=== PATIENT | female | born 1960 | race Caucasian/White ===

== ENCOUNTER 2019-09-23 08:18 | Emergency (ER) | payer OTHER, SELFPAY ==
--- NOTE | ~2019-09-23 | XR_ITS ---
EXAMINATION: XR chest 2V DATE: 09/23/2019 09:57 INDICATION: Cough and fever. TECHNIQUE: Frontal and lateral views of the chest were obtained. COMPARISON: None. FINDINGS: The chest demonstrates clear lungs without pneumonia, pleural effusion, or pneumothorax. Th e heart size is normal. IMPRESSION: 1. No acute cardiopulmonary disease. Reviewed, dictated and finalized at location A. [employer] FINANCE MANAGER
--- NOTE | 2019-09-23 09:01 | ED.URI ---
HPI - URI/Sore Throat General Chief Complaint: Upper Respiratory Infection Stated Complaint: Ear pain/Sinus/Runny nose Time Seen by Provider: 09/23/19 09:36 Source: patient and RN notes reviewed Mode of arrival: ambulatory Limitations: no limitations History of Present Illness HPI Narrative: 59-year-old female presents with concern for left earache, rhinorrhea, sinus congestion, cough, fever that started Monday. She reports one episode of diarrhea. Reports taking DayQuil and NyQuil with no relief. MD elicited complaint: cough Related Data Home Medications Medication Instructions Recorded Confirmed hydrochlorothiazide 12.5 mg DAILY 09/23/19 09/23/19 lansoprazole [Prevacid] 15 mg PO DAILY 09/23/19 09/23/19 lisinopril 40 mg DAILY 09/23/19 09/23/19 simvastatin 20 mg DAILY 09/23/19 09/23/19 Allergies Allergy/AdvReac Type Severity Reaction Status Date / Time amoxicillin Allergy Unknown Rash Verified 09/23/19 09:36 Review of Systems Review of Systems: Narrative: CONSTITUTIONAL: Reports malaise, chills, sweats, fever. EYES: Denies visual changes, redness, or discharge. ENT: Reports rhinorrhea, congestion, otalgia. Denies sinus pain, otalgia. CARDIOVASCULAR: Denies chest pain, palpitations, or edema. RESPIRATORY: Reports cough, chest congestion. Denies dyspnea. GASTROINTESTINAL: Denies abdominal pain, nausea, vomiting reports one episode of diarrhea SKIN: Denies rash or itching. MUSCULOSKELETAL: Reports myalgia. NEUROLOGIC: Reports headache. All systems reviewed & are unremarkable except as noted in HPI and below PMFSH Family History Family History (Updated 11/27/14 @ 10:51 by DOCTOR UNKNOWN) Other Diabetes mellitus Malignant neoplasm of prostate Social History Social History Smoking status: Never smoker Second hand tobacco smoke exposure: No Alcohol intake: current Gender identity (if verbalized by the patient): Female Comments At time of signature, agree with nursing past medical, surgical, social and family history. There is no relevant family history pertinent to the presenting complaint Exam Narrative: Exam Narrative: GENERAL: Well-appearing, well-nourished, and in no acute distress. HEAD: Normocephalic EYES: PERRLA, conjunctivae clear ENT: Nares clear, turbinates erythematous, clear discharge. Mucous membranes moist. TM pearly alfredo with dull light reflex bilaterally; no tragal tenderness. Oropharynx not erythematous without lesions. Tonsils not enlarged and without exudate, no drooling, no hoarseness, no trismus. NECK: Supple. No lymphadenopathy CHEST: Scant scattered rhonchi, otherwise clear to auscultation, breath sounds right lower lobe diminished. No wheezing, rales, or stridor. No respiratory distress, speaks in full sentences. HEART: Regular rate and rhythm. No murmur heard. Normal peripheral pulses. SKIN: Warm, dry, no rash. NEURO: Alert and oriented x3. PSYCH: Normal mood and affect Course Course Emergency Course: Patient is aware of diagnosis, understands and agrees to treatment plan. Anticipatory guidance given. Patient agrees to follow-up as directed and is aware of reasons to seek care at the emergency department. Portions of this record may have been created with voice recognition software Vital Signs Vital signs: Vital Signs Temperature 102.6 F H 09/23/19 09:24 Pulse Rate 112 H 09/23/19 09:24 Respiratory Rate 16 09/23/19 09:24 Blood Pressure 132/77 09/23/19 09:24 Pulse Oximetry 96 09/23/19 09:24 Temperature 102.6 F H 09/23/19 09:24 Pulse Rate 112 H 09/23/19 09:24 Respiratory Rate 16 09/23/19 09:24 Blood Pressure 132/77 09/23/19 09:24 Pulse Oximetry 96 09/23/19 09:24 Reviewed. MDM - URI/Sore Throat MDM Narrative Medical decision making narrative: Differential diagnosis considered: Strep pharyngitis, allergic rhinitis, upper respiratory tract infection, sinusitis, rhinosinusitis, nasopharyngitis. viral pharyngitis, otitis media, otitis exte
[2019-09-23 09:24] VITALS: BP 132/77; PULSE 112; RESP 16; TEMP 39.2; O2SAT 96
== END 2019-09-23 10:10 | disposition home or self-care (01) ==
PROVIDERS: Emergency Provider Nurse Practitioner; PCP Family Medicine
DX: J11.1 Influenza due to unidentified influenza virus with other respiratory manifestations (principal); I10 Essential (primary) hypertension
CPT/HCPCS: 71046; 87804; 99213; G0463

== ENCOUNTER 2019-11-09 04:36 | Emergency (ER) | payer OTHER, SELFPAY ==
[2019-11-09 04:42] VITALS: BP 135/82; PULSE 97; RESP 18; TEMP 36.9; O2SAT 100
--- NOTE | 2019-11-09 04:55 | ED.BACK ---
HPI - Back Pain/Injury General Chief Complaint: Back Pain/Injury Stated Complaint: back pain Time Seen by Provider: 11/09/19 04:41 Source: patient Mode of arrival: ambulatory Limitations: no limitations History of Present Illness HPI Narrative: This patient is 59 yo female who presents with c/o left lower back pain x 3 days. She reports she has been having left lower back pain that intermittently radiates down her left leg. Her pain is worse with sitting and twist. She reports pain is like a spasm. She denies abdominal pain, fever, numbness , lower extremity weakness, nausea or vomiting. She also denies dysuria or urinary incontinence. She has been taking extra strength tylenol for her pain with minimal relief. She last took tylenol at 3 am. She does have previous history of back pain and bulging disc. MD elicited complaint: back pain Pertinent past history: prior back pain Onset (ago): day(s) Timing: intermittent Pain scale (0-10): 8 Similar Symptoms Previously: Yes Quality: stabbing Location: left lower back Radiation: buttocks Associated symptoms: denies other symptoms Related Data Home Medications Medication Instructions Recorded Confirmed lansoprazole [Prevacid] 15 mg PO DAILY 09/23/19 09/23/19 Allergies Allergy/AdvReac Type Severity Reaction Status Date / Time amoxicillin Allergy Unknown Rash Verified 11/09/19 04:49 Review of Systems Review of Systems: All systems reviewed & are unremarkable except as noted in HPI and below Constitutional: Constitutional: Denies chills and Denies fever(s) ENT: Denies dizziness Gastrointestinal: Gastrointestinal: Denies abdominal pain, Denies diarrhea, Denies nausea and Denies vomiting Genitourinary: Genitourinary: Denies hematuria, Denies nocturia, Denies dysuria and Denies urinary incontinence Musculoskeletal: Musculoskeletal: Reports back pain, Denies arthralgias and Denies joint swelling Neurologic: Denies focal weakness, Denies numbness and Denies weakness [facility] Past Medical History Medical History HLD (hyperlipidemia) Hypertension Surgical History Surgical History History of tonsillectomy Social History Social History Smoking status: Never smoker Second hand tobacco smoke exposure: No Alcohol intake: current Gender identity (if verbalized by the patient): Female Exam Const: General: alert Nutritional Appearance: obese Orientation/consciousness: patient oriented x3 Other: patient standing up Eyes: EOM: EOMs intact bilaterally Neck: Neck: normal visual inspection and no lymphadenopathy Chest: Chest palpation & inspection: normal inspection of the chest Resp: Effort & Inspection: normal respiratory effort Auscultation: clear to auscultation bilaterally Cardio: Rate: regular rate Rhythm: regular rhythm Heart sounds: no murmurs Peripheral pulses: posterior tibial pulses present and dorsalis pedis present GI: GI Palp: Yes Soft to palpation and No Tenderness to palpation present (GI) Auscultation: normal bowel sounds Back/Spine/Pelvis: Back: no CVA tenderness Thoracic/Lumbar Spine: No lumbar spinal tenderness and No straight leg raise positive Skin: General skin exam: normal color Rashes: no rashes Neuro: General: patient oriented x3, moves all extremities and no meningeal signs Extrem: General: no pedal edema Course Reevaluation(s) Reevaluation #1: Patient reports pain is much improved /. I have discussed discharge plan as treatment of sciatic and she will need to follow up with PCP. PAtient has no sign of cord compression or cauda equina Date: 11/09/19 Time: 05:34 Vital Signs Vital signs: Vital Signs Temperature 98.4 F 11/09/19 04:42 Pulse Rate 97 11/09/19 04:42 Respiratory Rate 18 11/09/19 04:42 Blood Pressure 135/82 11/09/19 0
[2019-11-09] MEDS: KETOROLAC (*BKC) 60 MG/2 ML VIAL IM (05:00)
[2019-11-09] MEDS: HYDROMORPHONE HCL 1 MG/ML INJ 0.5 MG IM (05:00)
[2019-11-09] MEDS: ONDANSETRON HCL ODT 4 MG TABLET PO (05:00)
[2019-11-09 05:51] VITALS: BP 128/80; PULSE 91; RESP 16; O2SAT 100
== END 2019-11-09 05:53 | disposition home or self-care (01) ==
PROVIDERS: Emergency Provider General Practice; PCP Family Medicine
DX: M54.16 Radiculopathy, lumbar region (principal); I10 Essential (primary) hypertension; E78.5 Hyperlipidemia, unspecified
CPT/HCPCS: 96372; 99284; A9270; J1170; J1885

== ENCOUNTER 2021-05-21 01:52 | Day surgery (SDC) | payer OTHER, SELFPAY ==
[2021-05-05 11:28] VITALS: BMI 40.7
[2021-05-21 09:46] VITALS: BP 134/71; PULSE 83; RESP 20; TEMP 37.2; O2SAT 98; BMI 42.0
[2021-05-21] MEDS: LACTATED RINGERS 1,000 ML 150 ML IV CONT (09:50)
--- NOTE | 2021-05-21 10:04 | WPDANESEPPF ---
Anes - Initial Pre Proc Eval Procedure: Operation Date: 05/21/21 10:30 Proposed Procedures p Colonoscopy - Harish Barrow MD Date/Time: 05/21/21 10:04 Surgeon: Harish Barrow MD Pre Op Diagnosis: positive cologuard Patient Data Age: 60 Gender: F Height: 1.7 m Weight: 121.8 kg Last Vital Signs Temp 37.2 C 05/21/21 09:46 Pulse 83 05/21/21 09:46 Resp 20 05/21/21 09:46 BP 134/71 05/21/21 09:46 Pulse Ox 98 05/21/21 09:46 Allergies Allergy/AdvReac Type Severity Reaction Status Date / Time amoxicillin Allergy Unknown Rash Verified 05/21/21 09:45 Home Medications Medication Instructions Recorded Confirmed Type lansoprazole [Prevacid] 15 mg PO DAILY 09/23/19 05/21/21 History hydrochlorothiazide 12.5 mg tablet See Rx Instructions .ROUTE 09/29/20 05/21/21 Rx .COMPLEX #90 tablet lisinopril 40 mg tablet See Rx Instructions .ROUTE 09/29/20 05/21/21 Rx .COMPLEX #90 tablet simvastatin 20 mg tablet See Rx Instructions .ROUTE 09/29/20 05/21/21 Rx .COMPLEX #90 tablet multivitamin with minerals [All 1 tablet PO DAILY 05/05/21 05/21/21 History Purpose Multivitamin-Min] omega-3 fatty acids [Fish Oil 1,000 mg PO DAILY 05/05/21 05/21/21 History Concentrate] Patient hx anesthesia problems: none Family hx anesthesia problems: none Results Review: All pre-operative results and documents have been reviewed as part of the pre-operative evaluation. [facility] Past Medical History Medical History (Updated 05/21/21 @ 10:04 by Salvador Huerta MD) HLD (hyperlipidemia) Hypertension Morbid obesity Surgical History Surgical History (Updated 05/21/21 @ 10:05 by Salvador Huerta MD) History of D&C History of tonsillectomy Family History Family History Other Diabetes mellitus Malignant neoplasm of prostate Social History Social History Smoking status: Never smoker Second hand tobacco smoke exposure: No Alcohol intake: current Drinks per week: 1 Alcohol use details: rare alcohol use Substance use: never Substance use type: does not use Living arrangements: with family Additional living arrangements comments: lives with spouse Gender identity (if verbalized by the patient): Female Spiritual care concerns: No Anes - Eval Final PreProcedure Day of Procedure 05/21/21 10:04 Patient weight: morbidly obese Heart: regular rate and rhythm Lungs: clear to auscultation Airway: Mallampati scale class II Neurological: alert and oriented Last oral intake: >/= 8 hours ASA classification: III Emergent: no Anesthetic plan: proceed Anesthesia type and monitoring: general GIVS and standard monitoring Results Review: All pre-operative results and documents have been reviewed as part of the pre-operative evaluation. Informed Consent: The patient's anesthetic plan and its attendant risks and benefits were discussed with the patient/family/POA. Questions were solicited and answers provided to the satisfaction of the patient/family/POA.
--- NOTE | 2021-05-21 10:20 | WPDGICN ---
Assessment and Plan Assessment and plan (1) Positive colorectal cancer screening using Cologuard test: Code(s): R19.5 - Other fecal abnormalities Status: Acute Assessment and Plan: Patient had recent positive Cologuard test. For this reason screening colonoscopy will be performed. GI Consult Note Consult date/time: 05/21/21 10:20 HPI: Rupinder Steele is a 60 year old female Presents for screening colonoscopy. Patient recently had a Cologuard test that was positive. Patient denies any blood in her stools. Her weight appetite and bowel movements are normal. She denies abdominal pain. Family history is noncontributory. Review of Systems Review of Systems: All systems reviewed & are unremarkable except as noted in HPI and below PMFSH Past Medical History Medical History (Updated 05/21/21 @ 10:04 by Salvador Huerta MD) HLD (hyperlipidemia) Hypertension Morbid obesity Surgical History Surgical History (Updated 05/21/21 @ 10:05 by Salvador Huerta MD) History of D&C History of tonsillectomy Family History Family History Other Diabetes mellitus Malignant neoplasm of prostate Social History Social History Smoking status: Never smoker Second hand tobacco smoke exposure: No Alcohol intake: current Drinks per week: 1 Alcohol use details: rare alcohol use Substance use: never Substance use type: does not use Living arrangements: with family Additional living arrangements comments: lives with spouse Gender identity (if verbalized by the patient): Female Spiritual care concerns: No Meds Home Medications and Allergies Home Medications Medication Instructions Recorded Confirmed Type lansoprazole [Prevacid] 15 mg PO DAILY 09/23/19 05/21/21 History hydrochlorothiazide 12.5 mg tablet See Rx Instructions .ROUTE 09/29/20 05/21/21 Rx .COMPLEX #90 tablet lisinopril 40 mg tablet See Rx Instructions .ROUTE 09/29/20 05/21/21 Rx .COMPLEX #90 tablet simvastatin 20 mg tablet See Rx Instructions .ROUTE 09/29/20 05/21/21 Rx .COMPLEX #90 tablet multivitamin with minerals [All 1 tablet PO DAILY 05/05/21 05/21/21 History Purpose Multivitamin-Min] omega-3 fatty acids [Fish Oil 1,000 mg PO DAILY 05/05/21 05/21/21 History Concentrate] Allergies Allergy/AdvReac Type Severity Reaction Status Date / Time amoxicillin Allergy Unknown Rash Verified 05/21/21 09:45 Vital Signs Vital Signs - 24 hr 05/21/21 09:46 Temperature 99 F Pulse Rate 83 Respiratory Rate 20 Blood Pressure 134/71 Pulse Oximetry 98 Exam Narrative: Physical exam reveals patient be alert. Vital signs stable. HEENT exam is unremarkable. Patient is anicteric. Lungs are clear to auscultation and percussion. Heart is without murmur or extra sounds. Abdominal exam bowel sounds are present soft nontender with no organomegaly. Digital external rectal exam is normal.
[2021-05-21 10:47] VITALS: BP 113/73; PULSE 75; RESP 26; O2SAT 96
[2021-05-21 10:57] VITALS: BP 122/72; PULSE 69; RESP 22; O2SAT 99
[2021-05-21 11:07] VITALS: BP 132/78; PULSE 66; RESP 19; O2SAT 100
== END 2021-05-21 11:20 | disposition home or self-care (01) ==
PROVIDERS: PCP Family Medicine; Visit Provider Internal Medicine Gastroenterology
PROC: 0DJD8ZZ Inspection of Lower Intestinal Tract, Via Natural or Artificial Opening Endoscopic (ICD-10-PCS; CPT 45378; principal; 2021-05-21 10:30)
DX: R19.5 Other fecal abnormalities (principal); K57.30 Diverticulosis of large intestine without perforation or abscess without bleeding; K64.8 Other hemorrhoids; I10 Essential (primary) hypertension; E78.5 Hyperlipidemia, unspecified
CPT/HCPCS: 45378; J2704; J7120

== ENCOUNTER 2023-05-08 14:13 | Outpatient (CLI) | payer OTHER, SELFPAY ==
--- NOTE | ~2023-05-08 | MM_ITS ---
EXAMINATION: MM screening n[place] BI w charlie HISTORY: Screening TECHNIQUE: Craniocaudal and mediolateral oblique 3-D tomosynthesis images were obtained and synthetic 2-D images were generated. CAD analysis was submitted and interpreted. COMPARISON: No prior mammogram is available for comparison at this institution. BREAST PARENCHYMAL COMPOSITION: The breasts are almost entirely fatty. FINDINGS: There is no evidence of suspicious mass, calcification, or architectural distortion to sugg est malignancy in either breast. There has been no suspicious interval change. IMPRESSION: 1. No mammographic evidence of malignancy. 2. Recommend routine screening mammography in one year. BI-RADS Category 1: Negative Reviewed, dictated and finalized at location A.
== END 2023-05-08 14:14 | disposition home or self-care (01) ==
LOC: ANHIMG 14:16
PROVIDERS: PCP Family Medicine; Visit Provider Physician Assistant Medical
DX: Z12.31 Encounter for screening mammogram for malignant neoplasm of breast (principal)
CPT/HCPCS: 77063; 77067

== ENCOUNTER 2023-12-21 10:10 | Outpatient (CLI) | payer BC, SELFPAY ==
--- NOTE | ~2023-12-21 | XR_ITS ---
Clinical Indication: Cough PA and lateral views of the chest: Comparison: 09/23/2019 Findings:. Small left lower lobe airspace disease. Right lung clear. Cardiomediastinal silhouette is within normal limits. Bones and soft tissues are unremarkable. Impression: Questionable patchy left lower lobe pneumonia. Reviewed, dictated and finalized at [facility]. Impression: Questionable patchy left lower lobe pneumonia.
== END 2023-12-21 10:11 ==
PROVIDERS: PCP Family Medicine; Visit Provider Family Medicine
DX: R05.9 Cough, unspecified (principal)
CPT/HCPCS: 71046

== ENCOUNTER 2025-04-11 09:17 | Emergency (ER) | payer BC, SELFPAY ==
[2025-04-11 09:24] VITALS: BP 139/75; PULSE 87; RESP 20; TEMP 37.3; O2SAT 98
--- NOTE | 2025-04-11 09:44 | ED_ITS ---
HPI - Back Pain/Injury General Chief Complaint: Back Pain/Injury Stated Complaint: Back Pain Time Seen by Provider: 04/11/25 09:35 Source: patient and RN notes reviewed Mode of arrival: ambulatory Limitations: no limitations History of Present Illness HPI Narrative: 64-year-old female presents Express Care complaining of left-sided low back pain for the last 2-3 days. Patient denies any apparent injuries or falls. Patient said she does have history of low back problems reported having degenerate disc disease and herniated disc. Patient says she is taking Tylenol, ibuprofen, ice, heat, and 10s unit without relief. Patient says the pain does radiate to the right lower back and down her right leg. Patient denies any saddle anaesthesia, loss of bowel or bladder function, leg weakness, fevers, or any other symptoms. Related Data Home Medications ?Medication ?Instructions ?Recorded ?Confirmed ?Last Taken ?Type multivitamin with minerals 1 tablet PO DAILY 05/05/21 04/11/25 Unknown History omega-3 fatty acids 1,000 mg 1,000 mg PO DAILY 04/11/25 Unknown History capsule (Fish Oil Concentrate) calcium 300 mg-D3 20 mcg-magnesium 1 tablet PO DAILY 0 10/13/21 04/11/25 Unknown History 25 mg-coppr 0.5 vo-fvfb-rror tablet (Caltrate-D3 Plus Minerals) Allergies Allergy/AdvReac Type Severity Reaction Status Date / Time amoxicillin Allergy Unknown Rash Verified 04/11/25 09:22 Review of Systems Review of Systems: CONSTITUTIONAL: Denies fever, chills, or sweats. EYES: Denies visual changes, redness, or discharge. ENT: Denies rhinorrhea, congestion, sore throat, or otalgia. CARDIOVASCULAR: Denies chest pain, palpitations, or edema. RESPIRATORY: Denies cough or dyspnea. GASTROINTESTINAL: Denies abdominal pain, nausea, vomiting, or diarrhea. GENITOURINARY: Denies dysuria or hematuria. SKIN: Denies rash or itching. MUSCULOSKELETAL: Positive for low back pain. Negative for joint pain, or myalgia. NEUROLOGIC: Denies headache, numbness, loss of bowel or bladder function, saddle anesthesia, leg weakness, or weakness. PSYCHIATRIC: Denies anxiety or depression. All other systems reviewed are negative, except as documented in HPI. [facility] Past Medical History Medical History Morbid obesity HLD (hyperlipidemia) Hypertension Surgical History Surgical History History of D&C History of tonsillectomy Family History Family History Other Diabetes mellitus Malignant neoplasm of prostate Social History Social History Smoking status: Never smoker Second hand tobacco smoke exposure: No Alcohol intake: current Drinks per week: 1 Alcohol use details: rare alcohol use Substance use: never Substance use type: does not use Lack of Transportation: No Lack of Food: Never True Current Housing: I Have Housing Concerned About Future Housing: No Difficulty Paying Gas/Electric Bills: No Difficulty Paying for Meds: No Currently Unemployed: No Education: Associate Degree Difficulty w/ Childcare or Family Care: No Living arrangements: with family Additional living arrangements comments: lives with spouse Occupation/Education: retired Gender identity (if verbalized by the patient): Female Spiritual care concerns: No Comments At the time of my signature, I reviewed and agree with the nursing past medical, surgical, social, and family history. There is no relevant family history pertinent to the patient complaint. Exam Narrative: GENERAL: This is a well-nourished, well-developed adult, in no apparent distress. They are non ill-appearing, nontoxic appearing. Patient is obese. HEAD: normocephalic, atraumatic. EYES: Sclera clear/white. Conjunctiva normal. Vision is grossly intact. Extraocular movements intact EARS: External ears normal,Hearing grossly intact. NOSE: External nose normal THROAT: Mucous membranes moist, NECK: Neck supple, CARDIOVASCULAR: Regular rate and rhythm RESPIRATORY: In normal respiratory exam SKIN: warm, Dry, intact with no suspicious lesions or rash, good texture and turgor. NEURO: awake, alert, and oriented to person, place and time. There were no obvious focal neurologic abnormalities. EXTREMITIES: No joint tenderness, effusion, or edema noted. BACK: Mild tenderness to palpation to right lumbar back without deformity. No CVA tenderness. No cervical, thoracic, or lumbar point tenderness, crepitus, or step-offs. Pain elicited with twisting of the trunk. Course Course Emergency Course: Portions of this record may have been created with voice recognition software Level of Care: Express Care Visit Vital Signs Vital signs: Vital Signs Temperature 99.2 F 04/11/25 09:24 Pulse Rate 87 04/11/25 09:24 Respiratory Rate 20 04/11/25 09:24 Blood Pressure 139/75 04/11/25 09:24 Pulse Oximetry 98 04/11/25 09:24 Oxygen Delivery Room Air 04/11/25 09:24 Temperature 99.2 F 04/11/25 09:24 Pulse Rate 87 04/11/25 09:24 Respiratory Rate 20 04/11/25 09:24 Blood Pressure 139/75 04/11/25 09:24 Pulse Oximetry 98 04/11/25 09:24 Oxygen Delivery Room Air 04/11/25 09:24 Reviewed MDM - Back Pain/Injury MDM Narrative Medical decision making narrative: Patient likely has a lumbar strain, symptoms appear to be sciatic nerve as well. Will prescribe patient a course prednisone along with muscle relaxers as needed. No cauda equina symptoms. Discussed physical exam findings. Advised supportive measures and signs/symptoms to go to the ER. Pt is appropriate for outpt treatment and f/u. Differential Diagnosis Differential diagnosis: Likely lumbar radiculopathy, sciatica and strain of lumbar region Critical Care Time Critical Care Time Critical Care Time: No Discharge Plan Discharge Clinical Impression: Strain of lumbar region Qualifiers: Encounter type: initial encounter Qualified Code(s): S39.012A - Strain of muscl e, fascia and tendon of lower back, initial encounter Patient Disposition: Home Condition: Stable Instructions: Low Back Strain (ED), Lower Back Exercises (ED) Additional Instructions: Take the muscle relaxer as directed. Do not drive or operate heavy machine, or work while taking the medication as it can make you drowsy. Take prednisone as directed. You may take ibuprofen 600 mg to 800 mg every 6-8 hours. Do not exceed more than 800 mg of ibuprofen per dose. Do not exceed more than 3200 mg ibuprofen in a day. You may take up to 1000 mg Tylenol every 6-8 hours. Do not exceed 1000 mg per dose, do exceed more than 4000 mg of Tylenol in a day. Please follow-up with your primary care provider if pain persist Rest. Avoid pushing, pulling, lifting --running or excessive walking-- or anything that worsens the symptoms You may try stretching your lower back or doing spinal decompression to help with symptoms. Go to the emergency department if you develop any numbness or tingling to your groin, weakness in your legs, or any loss of bowel or bladder function. Patient Language: Hungarian Prescriptions: New methocarbamol 750 mg tablet 750 mg PO TID Qty: 14 0RF prednisone 20 mg tablet 40 mg PO DAILY 5 Days Qty: 10 0RF No Action Caltrate-D3 Plus Minerals 300 mg-800 unit -25 mg-0.5 mg tablet 1 tablet PO DAILY All Purpose Multivitamin-Min Tablet 1 tablet PO DAILY omega-3 fatty acids [Fish Oil Concentrate] 1,000 mg Capsule 1,000 mg PO DAILY amlodipine 2.5 mg tablet 2.5 mg PO DAILY Qty: 90 3RF lisinopril 40 mg tablet See Rx Instructions .ROUTE .COMPLEX Qty: 90 3RF Dose Instruction: TAKE 1 TABLET DAILY Rx Instructions: TAKE 1 TABLET DAILY atorvastatin 10 mg tablet 10 mg PO DAILY Qty: 90 1RF Follow-up/Referrals: Chanel Meneses MD [Primary Care Provider, Family Practice] Time of Disposition: 09:41
== END 2025-04-11 09:47 | disposition home or self-care (01) ==
PROVIDERS: PCP Family Medicine
DX: S39.012A Strain of muscle, fascia and tendon of lower back, initial encounter (principal); X58.XXXA Exposure to other specified factors, initial encounter; I10 Essential (primary) hypertension; E78.5 Hyperlipidemia, unspecified; E66.01 Morbid (severe) obesity due to excess calories; Z68.41 Body mass index [BMI] 40.0-44.9, adult
CPT/HCPCS: 99213; G0463

== ENCOUNTER 2025-06-09 10:06 | Outpatient (CLI) | payer MEDICARE, SELFPAY ==
--- NOTE | ~2025-06-09 | XR_ITS ---
EXAMINATION: XR hip RT min 2V, 06/09/2025 10:10 SECURITIES COUNSELOR HISTORY: M25.551 - Pain in right hip COMPARISON: No comparisons available. Findings: No acute fracture or malalignment. No significant degenerative changes. Soft tissues unremarkable. Impression: No acute fracture or malalignment. Reviewed, dictated and finalized at location P. RITIES COUNSELOR Impression: No acute fracture or malalignment.
== END 2025-06-09 10:07 | disposition home or self-care (01) ==
LOC: MICIMG 10:07
PROVIDERS: PCP Student in an Organized Health Care Education/Training Program; Visit Provider Student in an Organized Health Care Education/Training Program
DX: M25.551 Pain in right hip (principal)
CPT/HCPCS: 73502